=== PATIENT | female | born 1955 | race Caucasian/White ===

== ENCOUNTER → 2016-11-06 | Outpatient (CLI) | payer MEDICARE ==
[~2016-11-06] MED LIST: CYAN1TAB46; HYDR-4246 PO; HYDR12.54 PO; IBUP200C62 PO; SERT100T PO; TIZA2CAP3 PO
--- NOTE | 2016-11-06 12:59 | DI ---
EXAM: LUMBAR SPINE 2-3 VIEWS DATE: 11/06/2016 12:18 PM ENCOUNTER: Initial INDICATION: ITS.REASON: M54.5 LBP COMPARISON: Concurrent left hip radiographs, prior lumbar spine radiographs 10/23/2013 TECHNIQUE: 3 views of the lumbar spine were obtained. FINDINGS: Five non rib-bearing lumbar type vertebrae are identified. Bony mineralization is normal. The vertebral bodies are normal in height and alignment without evidence of acute fracture or significant spondylolisthesis. Degenerative disc disease and facet arthropathy, not significantly changed from the prior examination in 2013. The SI joint spaces appear maintained. The visualized bowel gas pattern is unremarkable. Aortic atherosclerotic calcifications noted. IMPRESSION: Mild degenerative spondylosis, not significantly changed from 2013. .
--- NOTE | 2016-11-06 13:00 | DI ---
Indication: ITS.REASON: M25.552 PAIN IN LEFT HIP Procedure: HIP LEFT 2 VIEW: Encounter: Initial Comparison: 10/23/2013 Technique: AP and lateral views of the left hip. Were obtained Findings: Bony mineralization is normal. The visualized osseous structures appear intact with no acute fracture identified. The joint spaces are maintained. No focal radiographically apparent soft tissue swelling. No radiopaque foreign body. Impression: No acute osseous abnormality or significant arthritic changes appreciated. .
== END ==
LOC: IMA 12:08
PROVIDERS: ATTEND Family Medicine
DX: M25.552 Pain in left hip (principal); M54.5 Low back pain

== ENCOUNTER → 2016-11-23 | Outpatient (CLI) | payer MEDICARE ==
--- NOTE | 2016-11-23 09:42 | DI ---
Indication: ITS.REASON: M54.5 LOW BACK PAIN PROCEDURE: MRI LUMBAR SPINE W/O CONTRAST: Encounter: Initial Comparison: Lumbar spine radiographs dated November 06, 2016 Technique: Multiplanar multisequence MR imaging of the lumbar spine was performed without contrast. Findings: Alignment of the lumbar spine is within normal limits. No acute fracture identified. Bone marrow signal intensity is normal. Conus medullaris terminates normally at L2. The paraspinal soft tissues are within normal limits. Segmental analysis: L1-L2: Normal L2-L3: Normal L3-L4: Mild degenerative facet disease with minimal disk bulging causing mild central canal narrowing. There is also mild bilateral neural foraminal narrowing. L4-L5: Degenerative facet hypertrophy causing mild central canal stenosis. There is also mild right and moderate left neural foraminal stenosis. L5-S1: Central and right foraminal disk protrusion with mild degenerative facet disease. No central canal stenosis. Moderate right neural foraminal narrowing. No significant left foraminal stenosis. Impression: Degenerative disk and facet disease in the mid to lower lumbar spine with areas of central canal and neural foraminal narrowing as above. .
== END ==
LOC: IMA 08:17
PROVIDERS: ATTEND Family Medicine
DX: M48.06 Spinal stenosis, lumbar region (principal); M47.896 Other spondylosis, lumbar region; M51.27 Other intervertebral disc displacement, lumbosacral region